=== PATIENT | female | born 1985 | race Caucasian/White ===

== ENCOUNTER → 2016-10-01 | Outpatient (CLI) | payer OTHER | LOC: BMCIMAGING 16:36 | PROVIDERS: ATTEND Family Medicine | DX: R05 Cough (principal) ==

== ENCOUNTER → 2016-10-07 | Outpatient (CLI) | payer OTHER | LOC: BMCIMAGING 12:29 | PROVIDERS: ATTEND Family Medicine | DX: S22.31XA Fracture of one rib, right side, initial encounter for closed fracture (principal) ==

== ENCOUNTER 2016-10-09 15:31 | Emergency (ER) | payer OTHER ==
[2016-10-09] MEDS ORDERED: NS 1,000 ML IV ONE (16:12)
--- NOTE | 2016-10-09 16:14 | EDPHY ---
H & P Stated Complaint: 5 wks cough/saw pcp/dx bronchitis/increased pain r rib area HPI/ROS: CHIEF COMPLAINT: Cough, right-sided chest pain HISTORY OF PRESENT ILLNESS: Patient complains of a right lower rib and chest pain. This been present for over a week. Gradual onset. Constant duration. Severe, 10/10 pain. She reports of paradoxical appearance of the lower side of the ribs. She has been coughing for approximately 5 weeks. She has been evaluated twice for this and treated with short course of steroids, antitussive, [id number] anti- inflammatories. No improvement of her symptoms. She reports being seen by primary care physician and tested for pertussis which was negative. Chest x-ray has been reportedly negative for pneumonia. She has been treated as bronchitis. She is concerned over the level pain and the abnormal appearance of the ribs. No trauma or injury. No recent travel or surgery. She is fully vaccinated up-to-date on her tetanus and pertussis. REVIEW OF SYSTEMS: Ten systems reviewed and are negative unless otherwise noted in the HPI PAST MEDICAL HISTORY: Asthma SOCIAL HISTORY: Nonsmoker. Lives and works here in [place] FAMILY HISTORY: Noncontributory EXAMINATION General Appearance: Alert, no distress Head: normocephalic, atraumatic Eyes: Pupils equal and round, no conjunctival pallor or injection ENT, Mouth: Mucous membranes moist. Airway widely patent Neck: Normal inspection, supple, non-tender Respiratory: Lungs are clear to auscultation. No wheezing, rhonchi or crackles. Tenderness of the right anterior axillary line ribs 8 through 11. No paradoxical movements. No retractions or distress Cardiovascular: Regular rate and rhythm. No murmur. Pulses intact distally Gastrointestinal: Abdomen is soft and nontender Back: non-tender, no bony abnormalities Neurological: A&O, nonfocal, normal gait Skin: Warm and dry, no rash Extremities: Nontender, no pedal edema Psychiatric: Mood and affect normal DIFFERENTIAL DIAGNOSES: Including but not limited to bronchitis, costochondritis, rib fracture, pneumonitis, pleurisy, PE MDM: 4:13 p.m. Five weeks duration of persistent cough with greater than 1 week of right lower rib and chest pain. She reports abnormal appearance of the right lower part of the chest. I do not appreciate this on examination, but she is in obvious discomfort and tearful. Lungs are clear in all duke. Two chest x-rays have been done within the past week, thus I have ordered CT scan of the chest. Vital signs are within normal limits 6:[address] scan of the chest reveals no acute findings. No PE. No rib fractures. No pneumonia. No parenchymal injury. Likely diagnosis considerations are costochondritis and pleurisy. Her vital signs remained stable. She is feeling significantly better after the Toradol. More so than any other medication she has had in the past 5 weeks. This also suggested this is likely inflammatory. I will provide a prescription of prednisone and structure to take anti- inflammatories after completing the prednisone. She is to follow up with primary care physician further care. She is comfortable with this plan and discharged home stable condition. SUPERVISION: Patient was evaluated in conjunction with the supervising physician. Please see their note for details. Source: Patient, Family Exam Limitations: No limitations - Personal History LMP (Females 10-55): 22-28 Days Ago Current Tetanus/Diphtheria Vaccine: Yes Tetanus Vaccine Date: 02/10/2015 - Medical/Surgical History Hx Asthma: Yes Hx Chronic Respiratory Disease: No Hx Diabetes: No Hx Cardiac Disease: No Hx Renal Disease: No Hx Cirrhosis: No Hx Alcoholism: No Hx HIV/AIDS: No Hx Splenectomy or Spleen Trauma: No Other PMH: HYPOGLYCEMIA CONTROLLED BY DIET, ASTHMA, HX OF RAD, BRONCHITIS, GLUTEN INTOLERANCE, HX OF PYELO, UTIS, TOXIC SHOCK, SURGERIES. ANXIETY. 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 - Social History Smoking Status: Never smoked Constitutional: Initial Vital Signs Temperature (C) 98.8 F 10/09/16 15:34 Heart Rate 74 10/09/16 15:34 Respiratory Rate 19 10/09/16 15:34 Blood Pressure 142/105 H 10/09/16 15:34 O2 Sat (%) 98 10/09/16 15:34 O2 Delivery Mode Room Air Allergies/Adverse Reactions: cephalexin monohydrate [From Keflex] Allergy (Verified 10/09/16 15:32) Rash Penicillins Allergy (Verified 10/09/16 15:32) Home Medications: Medication Instructions Recorded Albuterol 10/09/16 Azithromycin [Zithromax] 250 mg PO DAILY #6 tab 10/09/16 Prednisone 10/09/16 oxyCODONE HCL/ACETAMINOPHEN 1 each PO Q4-6PRN PRN #13 tablet 10/09/16 [Percocet 5-325 mg Tablet] predniSONE [Deltasone] 60 mg PO DAILY #15 tablet 10/09/16 Medical Decision Making - Diagnostics Imaging Results: Imaging Impressions Chest/Thorax CTA 10/09/16 16:12 Impression: 1. No pulmonary embolism. 2. Clear lungs. Findings and recommendations discussed with Obie Horowitz at 1800 hour, 2016. Final report concurs with initial preliminary interpretation. - Data Points Laboratory Results: Laboratory Results 10/09/16 16:20 10/09/16 10/09/16 10/09/16 16:20 16:20 16:15 WBC 10.46 10^3/uL H 10^3/uL (3.80-9.50) RBC 5.11 10^6/uL 10^6/uL (4.18-5.33) Hgb 14.5 g/dL g/dL (12.6-16.3) POC Hgb 15.6 gm/dL gm/dL (12.6-16.3) Hct 43.9 % % (38.0-47.0) POC Hct 46 % % (38-47) MCV 85.9 fL fL (81.5-99.8) MCH 28.4 pg pg (27.9-34.1) MCHC 33.0 g/dL g/dL (32.4-36.7) RDW 13.9 % % (11.5-15.2) Plt Count 331 10^3/uL 10^3/uL (150-400) MPV 11.2 fL fL (8.7-11.7) Neut % (Auto) 65.2 % % (39.3-74.2) Lymph % (Auto) 23.7 % % (15.0-45.0) [place] % (Auto) 6.8 % % (4.5-13.0) Eos % (Auto) 2.8 % % (0.6-7.6) Baso % (Auto) 0.9 % % (0.3-1.7) Nucleat RBC Rel Count 0.0 % % (0.0-0.2) Absolute Neuts (auto) 6.83 10^3/uL H 10^3/uL (1.70-6.50) Absolute Lymphs (auto) 2.48 10^3/uL 10^3/uL (1.00-3.00) Absolute Monos (auto) 0.71 10^3/uL 10^3/uL (0.30-0.80) Absolute Eos (auto) 0.29 10^3/uL 10^3/uL (0.03-0.40) Absolute Basos (auto) 0.09 10^3/uL 10^3/uL (0.02-0.10) Absolute Nucleated RBC 0.00 10^3/uL 10^3/uL (0-0.01) Immature Gran % 0.6 % % (0.0-1.1) Immature Gran # 0.06 10^3/uL 10^3/uL (0.00-0.10) POC Sodium 141 mEq/L mEq/L (134-144) POC Potassium 3.9 mEq/L mEq/L (3.3-5.0) POC Chloride 102 mEq/L mEq/L (97-110) POC BUN 15 mg/dL mg/dL (7-23) POC Creatinine 0.9 mg/dL mg/dL (0.6-1.0) POC Glucose 94 mg/dL mg/dL (70-100) Total Bilirubin 0.4 mg/dL mg/dL (0.1-1.4) Conjugated Bilirubin 0.3 mg/dL mg/dL (0.0-0.5) Unconjugated Bilirubin 0.1 mg/dL mg/dL (0.0-1.1) AST 16 IU/L IU/L (14-46) ALT 27 IU/L IU/L (9-52) Alkaline Phosphatase 68 IU/L IU/L (38-126) Total Protein 8.0 g/dL g/dL (6.3-8.2) Albumin 4.7 g/dL g/dL (3.5-5.0) Lipase 180.0 IU/L IU/L (23-300) Beta HCG, Quant < 2.39 mIU/mL mIU/mL (0-4.83) Medications Given: Discontinued Medications Sodium Chloride (Ns) 1,000 mls @ 0 mls/hr IV ONCE ONE; Wide Open PRN Reason: Protocol Stop: 10/09/16 16:13 Last Admin: 10/09/16 16:24 Dose: 1,000 mls Ketorolac Tromethamine (Toradol) 30 mg IVP EDNOW ONE Stop: 10/09/16 16:35 Last Admin: 10/09/16 16:43 Dose: 30 mg Morphine Sulfate (Morphine) 4 mg IVP EDNOW ONE Stop: 10/09/16 16:13 Last Admin: 10/09/16 16:45 Dose: Not Given Point of Care Test Results: 10/09/16 16:15 POC Sodium 141 POC Potassium 3.9 POC Chloride 102 POC BUN 15 POC Creatinine 0.9 POC Glucose 94 Departure - Departure Disposition: Home, Routine, Self-Care Clinical Impression: Costochondritis, Bronchitis, Pleurisy Condition: Good Instructions: Pleurisy (ED), Costochondritis (ED), Acute Bronchitis (ED) Additional Instructions: 1. Follow up with primary care physician 2. Medications as prescribed 3. Return to the ER for worsening symptoms Referrals: Ervin Rodriguez MD [[facility] [place]] - As per Instructions Stand Alone Forms: Work Excuse Prescriptions: Azithromycin [Zithromax] 250 mg PO DAILY #6 tab oxyCODONE HCL/ACETAMINOPHEN [Percocet 5-325 mg Tablet] 1 each PO Q4-6PRN PRN # 13 tablet PRN Reason: Pain, Breakthrough predniSONE [Deltasone] 60 mg PO DAILY #15 tablet
[2016-10-09 16:29] LABS: % IMMATURE GRANULYOCYTES 0.6 % (0.0-1.1); ABSOLUTE IMMATURE GRANULOCYTES 0.06 10^3/uL (0.00-0.10); ADD DIFF? NO; ADD MORPH? NO; ADD SCAN? NO; ATYPICAL LYMPHOCYTE FLAG 0 (0-99); FRAGMENT RBC FLAG 0 (0-99); HEMATOCRIT 43.9 % (38.0-47.0); HEMOGLOBIN 14.5 g/dL (12.6-16.3); LEFT SHIFT FLG 0 (0-99); LIPEMIA HEMOLYSIS FLAG 80 (0-99); MEAN CELL HEMOGLOBIN 28.4 pg (27.9-34.1); MEAN CELL VOLUME 85.9 fL (81.5-99.8); MEAN PLATELET VOLUME 11.2 fL (8.7-11.7); PLATELET CLUMPS FLAG 0 (0-99); PLATELET COUNT 331 10^3/uL (150-400); RED BLOOD CELL COUNT 5.11 10^6/uL (4.18-5.33); RED CELL DISTRIBUTION WIDTH 13.9 % (11.5-15.2)
[2016-10-09] MEDS ORDERED: KETOROLAC 30 MG/1 ML SDV IVP ONE (16:34)
[2016-10-09 16:45] LABS: ALANINE AMINOTRANSFERASE 27 IU/L (9-52); ALBUMIN 4.7 g/dL (3.5-5.0); ALKALINE PHOSPHATASE 68 IU/L (38-126); ASPARTATE AMINOTRANSFERASE 16 IU/L (14-46); BILIRUBIN,TOTAL 0.4 mg/dL (0.1-1.4); BILIRUBIN-CONJUGATED 0.3 mg/dL (0.0-0.5); BILIRUBIN-UNCONJUGATED 0.1 mg/dL (0.0-1.1)
[2016-10-09] MEDS ORDERED: IOPAMIDOL (ISOVUE 370) 100 ML BTL IV ONE (17:15)
[2016-10-09 18:45] VITALS: RESP 20
[2016-10-09 19:01] VITALS: BP 135/87; PULSE 72; TEMP 98.4; O2SAT 95
== END 2016-10-09 19:02 | disposition home or self-care (01) ==
DX: M94.0 Chondrocostal junction syndrome [Tietze] (principal); J20.9 Acute bronchitis, unspecified; J45.909 Unspecified asthma, uncomplicated; R09.1 Pleurisy
CPT/HCPCS: 82947-QW; 96374; J1885; Q9967

== ENCOUNTER → 2018-06-29 | Outpatient (CLI) | payer OTHER | LOC: FIMAGING 11:24 | PROVIDERS: ATTEND Obstetrics & Gynecology | DX: O09.292 Supervision of pregnancy with other poor reproductive or obstetric history, second trimester (principal); Z3A.21 21 weeks gestation of pregnancy ==

== ENCOUNTER → 2018-08-17 | Outpatient (CLI) | payer OTHER | LOC: FIMAGING 12:17 ==